=== PATIENT | male | born 1960 | race African-American/Black ===

== ENCOUNTER 2024-02-01 13:44 | Inpatient (IN) | payer MEDICAID ==
[~2024-02-01] VITALS: Ht 177.8 cm; Wt 78.9 kg
[~2024-02-01 13:44] MED LIST: CLON1PAT12 TP; HYDR100T31 PO; MINO10TA2 PO; NIFE90TA69 PO; SEVE800T25
[2024-02-01] MEDS: IOHEXOL-350 100 ML BOTTLE ONE (14:19)
[2024-02-01 14:47] LABS: BASOPHILS % 0.7 % (0.0-2.0); HEMATOCRIT. 33.6 % (42.0-52.0); HEMOGLOBIN. 10.9 g/dL (14.0-18.0); LYMPHOCYTES % 8.9 % (20.0-50.0); MEAN CORPUSCULAR HEMOGLOBIN 26.9 pg (28.0-32.0); MEAN CORPUSCULAR HGB CONC 32.4 g/dL (31.0-37.0); MEAN CORPUSCULAR VOLUME 82.9 fL (80.0-94.0); MONOCYTES % 7.7 % (2.0-8.0); NEUTROPHILS % 80.7 % (40.0-76.0); PLATELET 306 x1000/uL (130-400); RED BLOOD CELL COUNT 4.06 mill/uL (4.7-6.1); RED CELL DISTRIBUTION WIDTH 16.6 % (11.6-14.6); WHITE BLOOD COUNT 7.3 x1000/uL (4.5-11.0)
[2024-02-01 14:51] LABS: CHLORIDE 101 mEq/L (98-107); POTASSIUM 4.9 mEq/L (3.5-5.1); SODIUM 136 mEq/L (136-145)
[2024-02-01 14:52] LABS: CALCIUM 8.4 mg/dL (8.7-10.4); CARBON DIOXIDE 24 mEq/L (21-32)
[2024-02-01 14:57] LABS: UREA NITROGEN BLOOD 47 mg/dL (9-23)
[2024-02-01 15:00] LABS: PROTHROMBIN TIME 11.2 sec (9.6-11.0)
[2024-02-01] MEDS: TENECTEPLASE 50MG/VIAL IV ONE (15:03)
[2024-02-01 15:10] LABS: GLUCOSE 301 mg/dL (70-105)
[2024-02-01 15:15] LABS: CREATININE 9.4 mg/dL (0.6-1.3); ETHANOL BLOOD < 10 mg/dL (<10)
[2024-02-01 18:33] LABS: HEPATITIS B SURFACE ANTIGEN NEGATIVE (Negative)
[2024-02-01] MEDS ORDERED: CLONIDINE 0.1MG TABLET PO PRN (18:45)
[2024-02-01] MEDS ORDERED: IPRATROPIUM/ALBUTEROL 0.5-3(2.5)MG/3ML NEB HHN PRN (18:45)
[2024-02-01] MEDS ORDERED: ONDANSETRON HCL 4MG/2ML INJ IV PRN (18:45)
[2024-02-01] MEDS ORDERED: MAGNESIUM/ALUMINUM HYDROXIDE/SIMETHICONE 30ML UDC PO PRN (18:45)
[2024-02-01] MEDS ORDERED: DOCUSATE SODIUM 100MG CAPSULE PO PRN (18:45)
[2024-02-01] MEDS ORDERED: ACETAMINOPHEN 325MG TABLET PO PRN ×2 (18:45)
[2024-02-01] MEDS ORDERED: GUAIFENESIN 200MG/10ML SUGAR FREE UDC PO PRN (18:45)
[2024-02-01 18:54] LABS: HEPATITIS A AB IGM NEGATIVE (Negative); HEPATITIS B CORE AB IGM NEGATIVE (Negative)
[2024-02-01 18:55] LABS: HEPATITIS C AB NON REACTIVE (Neg) (Negative)
[2024-02-01] MEDS: INSULIN LISPRO 100 UNITS/ML SUBCUT SCH (21:00)
[2024-02-01] MEDS: BLOOD SUGAR DIAGNOSTIC STRIP TEST SCH (21:57)
[2024-02-02] VITALS (48 sets, daily range): BP systolic 102–160; BP diastolic 48–88; PULSE 55–125; RESP 9–24; TEMP 96.6–99
[2024-02-02 04:30] LABS: BASOPHILS % 0.5 % (0.0-2.0); EOSINOPHILS % 3.6 % (0.0-5.0); HEMATOCRIT. 31.9 % (42.0-52.0); HEMOGLOBIN. 10.4 g/dL (14.0-18.0); MEAN CORPUSCULAR HGB CONC 32.5 g/dL (31.0-37.0); MEAN PLATELET VOLUME 7.8 fl (7.4-10.4); NEUTROPHILS % 75.9 % (40.0-76.0); PLATELET 290 x1000/uL (130-400); RED BLOOD CELL COUNT 3.85 mill/uL (4.7-6.1); RED CELL DISTRIBUTION WIDTH 16.5 % (11.6-14.6); WHITE BLOOD COUNT 8.9 x1000/uL (4.5-11.0)
[2024-02-02 04:41] LABS: CHLORIDE 104 mEq/L (98-107); POTASSIUM 4.8 mEq/L (3.5-5.1); SODIUM 135 mEq/L (136-145)
[2024-02-02 04:42] LABS: CALCIUM 7.7 mg/dL (8.7-10.4); CARBON DIOXIDE 25 mEq/L (21-32)
[2024-02-02 04:46] LABS: CREATINE KINASE MB FRACTION 2.4 ng/mL (0.5-3.6); IRON 53 ug/dL (65-175)
[2024-02-02 04:47] LABS: GLUCOSE 84 mg/dL (70-105); TRIGLYCERIDE 44 mg/dL (0-150); UREA NITROGEN BLOOD 57 mg/dL (9-23)
[2024-02-02 04:48] LABS: LDL CHOLESTEROL 64 mg/dL (5-100)
[2024-02-02 04:49] LABS: CHOLESTEROL 124 mg/dL (<200); CREATINE KINASE 90 IU/L (46-171); HDL CHOLESTEROL 52 mg/dL (>55); TOTAL IRON BINDING CAPACITY 218 ug/dl (250-425)
[2024-02-02 04:50] LABS: FOLIC ACID (FOLATE) SERUM 9.43 ng/mL (>5.38)
[2024-02-02 04:51] LABS: FERRITIN 247 ng/mL (22-322); THYROID STIMULATING HORMONE 0.71 uIU/mL (0.55-4.78)
[2024-02-02 04:52] LABS: T4 FREE 0.89 ng/dL (0.89-1.76); VITAMIN B12 SERUM 455 pg/mL (211-911)
[2024-02-02 04:58] LABS: CREATININE 10.4 mg/dL (0.6-1.3); TROPONIN I HIGH SENSITIVITY 183 ng/L (3.0-53)
[2024-02-02 09:21] LABS: HEMATOCRIT 35.5 % (42.0-52.0); HEMOGLOBIN 11.1 g/dL (14.0-18.0)
[2024-02-02 09:50] LABS: PHOSPHORUS 9.2 mg/dL (2.5-4.9)
[2024-02-02 13:37] LABS: CREATINE KINASE 95 IU/L (46-171)
[2024-02-02 13:43] LABS: TROPONIN I HIGH SENSITIVITY 242 ng/L (3.0-53)
[2024-02-02] MEDS: PANTOPRAZOLE SODIUM 40 MG/VIAL IV SCH (14:52)
[2024-02-02] MEDS: TAMSULOSIN HCL 0.4MG SR CAPSULE PO SCH (14:54)
[2024-02-02 22:25] LABS: CREATINE KINASE MB FRACTION 2.1 ng/mL (0.5-3.6)
[2024-02-02 23:38] LABS: CREATINE KINASE MB FRACTION 2.2 ng/mL (0.5-3.6)
[2024-02-03] VITALS (47 sets, daily range): BP systolic 88–140; BP diastolic 42–84; PULSE 54–77; RESP 7–24; TEMP 97.7–98.7
[2024-02-03 05:57] LABS: BASOPHILS % 0.6 % (0.0-2.0); EOSINOPHILS % 4.4 % (0.0-5.0); HEMOGLOBIN. 10.4 g/dL (14.0-18.0); LYMPHOCYTES % 13.7 % (20.0-50.0); MEAN CORPUSCULAR HEMOGLOBIN 27.4 pg (28.0-32.0); MEAN CORPUSCULAR HGB CONC 33.6 g/dL (31.0-37.0); MEAN CORPUSCULAR VOLUME 81.5 fL (80.0-94.0); MEAN PLATELET VOLUME 7.8 fl (7.4-10.4); MONOCYTES % 9.6 % (2.0-8.0); NEUTROPHILS % 71.7 % (40.0-76.0); PLATELET 271 x1000/uL (130-400); RED BLOOD CELL COUNT 3.81 mill/uL (4.7-6.1); RED CELL DISTRIBUTION WIDTH 16.7 % (11.6-14.6); WHITE BLOOD COUNT 7.8 x1000/uL (4.5-11.0)
[2024-02-03 05:58] LABS: POTASSIUM 4.4 mEq/L (3.5-5.1)
[2024-02-03 06:12] LABS: CREATININE 8.6 mg/dL (0.6-1.3)
[2024-02-03] MEDS: DEXTROSE 50% WATER 50ML SYRINGE IV PRN (18:23)
[2024-02-03] MEDS: ASPIRIN 81MG TABLET PO SCH (20:40)
[2024-02-03] MEDS: ATORVASTATIN CALCIUM 20MG TABLET PO SCH (20:40)
[2024-02-04] VITALS (21 sets, daily range): BP systolic 108–146; BP diastolic 51–80; PULSE 51–73; RESP 12–18; TEMP 97.7–98.6; O2SAT 97
[2024-02-04 07:46] LABS: BASOPHILS % 0.5 % (0.0-2.0); EOSINOPHILS % 2.7 % (0.0-5.0); HEMATOCRIT. 30.2 % (42.0-52.0); LYMPHOCYTES % 17.5 % (20.0-50.0); MEAN CORPUSCULAR HGB CONC 33.2 g/dL (31.0-37.0); MEAN CORPUSCULAR VOLUME 81.3 fL (80.0-94.0); MEAN PLATELET VOLUME 7.8 fl (7.4-10.4); MONOCYTES % 10.2 % (2.0-8.0); NEUTROPHILS % 69.1 % (40.0-76.0); PLATELET 269 x1000/uL (130-400); RED BLOOD CELL COUNT 3.72 mill/uL (4.7-6.1); RED CELL DISTRIBUTION WIDTH 16.2 % (11.6-14.6)
[2024-02-04 07:55] LABS: CARBON DIOXIDE 22 mEq/L (21-32); CHLORIDE 98 mEq/L (98-107); POTASSIUM 4.7 mEq/L (3.5-5.1); SODIUM 135 mEq/L (136-145)
[2024-02-04 07:57] LABS: CALCIUM 7.6 mg/dL (8.7-10.4)
[2024-02-04 08:01] LABS: GLUCOSE 83 mg/dL (70-105)
[2024-02-04 08:02] LABS: UREA NITROGEN BLOOD 57 mg/dL (9-23)
[2024-02-04 08:12] LABS: CREATININE 10.8 mg/dL (0.6-1.3)
[2024-02-04 08:43] LABS: PHOSPHORUS 9.7 mg/dL (2.5-4.9)
[2024-02-04] MEDS: FERROUS SULFATE 325MG TABLET PO SCH (09:24)
[2024-02-04] MEDS ORDERED: TAMO10TA MT (14:12)
[2024-02-04] MEDS ORDERED: GABA-529 MT (14:12)
[2024-02-04] MEDS ORDERED: CALC667C MT (14:13)
[2024-02-04] MEDS ORDERED: OXYC-662 MT (14:13)
[2024-02-04] MEDS ORDERED: TAMS-11 PO (14:14)
[2024-02-04] MEDS ORDERED: SEVE0.8P3 PO (14:14)
[2024-02-04] MEDS ORDERED: FERR-63 PO (14:51)
[2024-02-04] MEDS ORDERED: ATOR20TA PO (14:51)
[2024-02-04] MEDS ORDERED: ASPI-1160 PO (14:51)
== END 2024-02-04 19:20 | disposition home or self-care (01) | DRG 45 ==
LOC: ER 13:44 → MICUSO 17:37 → EDBEDREQ 18:18 → EDBEDREQTM 18:18 → EDBEDREQSVC 18:18 → MICUSO 02-02 09:48 → 5EST 02-03 14:00
PROVIDERS: ADMIT Internal Medicine; ATTEND Internal Medicine
DX: I63.9 Cerebral infarction, unspecified (principal); I62.9 Nontraumatic intracranial hemorrhage, unspecified; D68.9 Coagulation defect, unspecified; I12.0 Hypertensive chronic kidney disease with stage 5 chronic kidney disease or end stage renal disease; N18.6 End stage renal disease; G81.94 Hemiplegia, unspecified affecting left nondominant side; C50.929 Malignant neoplasm of unspecified site of unspecified male breast; R47.01 Aphasia; E11.22 Type 2 diabetes mellitus with diabetic chronic kidney disease; I51.7 Cardiomegaly; I65.02 Occlusion and stenosis of left vertebral artery; E11.65 Type 2 diabetes mellitus with hyperglycemia; D50.9 Iron deficiency anemia, unspecified; Z99.2 Dependence on renal dialysis; E78.5 Hyperlipidemia, unspecified; R29.704 NIHSS score 4; Z90.10 Acquired absence of unspecified breast and nipple; Z85.3 Personal history of malignant neoplasm of breast; Z79.82 Long term (current) use of aspirin
CPT/HCPCS: 36415; 70496; 70498; 70544; 70547; 70553; 71045; 80048; 80061; 80320; 82550; 82553; 82607; 82728; 82746; 82962; 83036; 83540; 83550; 83735; 84100; 84439; 84443; 84484; 85014; 85018; 85025; 86705; 86709; 87340; 90935; 92523; 92610; 93005; 93306; 93880; 97162; 97166; 97535; 99291; C9113; J1815; J3101; Q9967; G0480